=== PATIENT | female | born 1960 | race African-American/Black ===

== ENCOUNTER 2018-03-18 17:39 | Emergency (ER) | payer OTHER ==
[2018-03-18 18:10] VITALS: BMI 43.4
[2018-03-18] MEDS ORDERED: MECLIZINE HCL 25 MG TABLET (FP) PO ONE (19:51)
[2018-03-18] MEDS ORDERED: ONDANSETRON 4 MG/2 ML VIAL IVPUSH ONE (19:51)
[2018-03-18] MEDS ORDERED: SODIUM CHLORIDE 0.9% 1000 ML INFUS.BAG IV ONE (19:51)
[2018-03-18] MEDS ORDERED: ONDANSETRON 4 MG/2 ML VIAL ONE (20:14)
[2018-03-18] MEDS ORDERED: MECLIZINE HCL 25 MG TABLET (FP) ONE (20:14)
--- NOTE | 2018-03-18 20:18 | PDOC ---
History of Present Illness - General Chief Complaint: Lightheaded Stated Complaint: DIZZINESS Time Seen by Provider: 03/18/18 19:37 History Source: Patient Exam Limitations: No Limitations - History of Present Illness Initial Comments: 03/18/18 19:53 The patient is a 58F with a PMH of HTN and hypothyroidism who presents to the ER with complaints of dizziness. The patient states that this morning, she woke up around 0630 and felt a sensation of the room spinning. With this sensation, she felt nauseous and vomited multiple times, NBNB. She laid down for 1 hour and then felt better. She saw her PCP who diagnosed her with a sinus infection and gave her medications. When she went home, she laid down again and felt the dizziness sensation with nausea and vomiting. She denies any numbness, tingling , weakness, CP, SOB, fever, chills. Past History - Past Medical History Allergies/Adverse Reactions: Allergies Allergy/AdvReac Type Severity Reaction Status Date / Time codeine AdvReac Intermediate stomach Verified 03/18/18 19:41 upset styrofoam Allergy tongue Uncoded 03/18/18 19:41 itchy Home Medications: Ambulatory Orders Levothyroxine [Synthroid -] 137 mcg PO DAILY 06/28/17 Lisinopril 20 mg PO ASDIR 06/28/17 Amoxicillin - [Amoxicillin 875mg Tablet -] 875 mg PO BID 03/18/18 Benzonatate 200 mg PO PRN PRN 03/18/18 Ergocalciferol (Vitamin D2) [Vitamin D2] 50,000 unit PO WEEKLY 03/18/18 Fluticasone Furoate [Arnuity Ellipta] 100 mcg IH BID 03/18/18 Hydrochlorothiazide [Hctz -] 50 mg PO DAILY 03/18/18 Meclizine HCl 25 mg PO ONCE #14 tablet 03/18/18 Naproxen [Naprosyn -] 250 mg PO PRN PRN 03/18/18 Vit 108/Iron/Folic AC [ One Tablet] 1 each PO DAILY 03/18/18 Anemia: Yes Asthma: No Cancer: No Cardiac Disorders: No CVA: No COPD: No CHF: No Dementia: No Diabetes: No GI Disorders: No Disorders: No HTN: Yes Hypercholesterolemia: No Liver Disease: No Seizures: No Thyroid Disease: Yes - Surgical History Abdominal Surgery: Yes Appendectomy: Yes Cardiac Surgery: No Cholecystectomy: No Lung Surgery: No Neurologic Surgery: No Orthopedic Surgery: No - Immunization History Immunization Up to Date: Yes - Suicide/Smoking/Psychosocial Hx Smoking Status: No Smoking History: Unknown if ever smoked Years of Tobacco Use: 0 Have you smoked in the past 12 months: No Number of Cigarettes Smoked Daily: 0 Cigars Per Day: 0 Information on smoking cessation initiated: No Hx Alcohol Use: No Drug/Substance Use Hx: No Substance Use Type: Alcohol Hx Substance Use Treatment: No Review of Systems - Review of Systems Able to Perform ROS?: Yes Comments:: 03/18/18 20:35 GENERAL/CONSTITUTIONAL: No fever or chills. No weakness. HEAD, EYES, EARS, NOSE AND THROAT: No change in vision. No ear pain or discharge. No sore throat. CARDIOVASCULAR: No chest pain, palpitations, or lightheadedness. RESPIRATORY: No cough, wheezing, shortness of breath, or hemoptysis. GASTROINTESTINAL: Positive for nausea and vomiting. No diarrhea, constipation, or abdominal pain. GENITOURINARY: No dysuria, frequency, hematuria, or change in urination. MUSCULOSKELETAL: No joint or muscle swelling or pain. No neck or back pain. SKIN: No rash or lesions. NEUROLOGIC: Positive for room spinning sensation. No headache, numbness, tingling, focal weakness, loss of consciousness, or change in strength/ sensation. ENDOCRINE: No increased thirst. No abnormal weight change. HEMATOLOGIC/LYMPHATIC: No anemia, easy bleeding, or history of blood clots. ALLERGIC/IMMUNOLOGIC: No hives or skin allergy. Is the patient limited [place] proficient: No *Physical Exam - Vital Signs Last Vital Signs Temp Pulse Resp BP Pulse Ox 88 20 143/74 99 03/18/18 18:04 03/18/18 18:04 03/18/18 18:04 03/18/18 18:04 - Physical Exam Comments: 03/18/18 20:36 GENERAL: Well developed, well nourished. Awake and alert. No acute distress. HEENT: Normocephalic, atraumatic. Hearing grossly normal. Moist mucous membranes. PERRLA, EOMI. No conjunctival pallor. Sclera are non-icteric. O NECK: Supple. Full ROM. No JVD. CARDIOVASCULAR: Regular rate and rhythm. No murmurs, rubs, or gallops. PULMONARY: No evidence of respiratory distress. Lungs clear to auscultation bilaterally. No wheezing, rales or rhonchi. ABDOMINAL: Soft. Non-tender. Non-distended. No rebound or guarding. GENITOURINARY: No CVA tenderness bilaterally. MUSCULOSKELETAL: Normal range of motion at all joints. No bony deformities or tenderness. EXTREMITIES: No cyanosis. No clubbing. No edema. No calf tenderness or swelling. SKIN: Warm and dry. Normal capillary refill. No rashes. No jaundice. NEUROLOGICAL: Alert, awake, appropriate. Cranial nerves 2-12 intact. No deficits to light touch and temperature in face, upper extremities and lower extremities. 5/5 strength in deltoids, biceps, triceps, quadriceps, hamstrings, and gastrocnemius. Finger to nose normal bilaterally. Normal speech. Gait is normal without ataxia. PSYCHIATRIC: Cooperative. Good eye contact. Appropriate mood and affect. Moderate Sedation - Procedure Monitoring Vital Signs: Procedure Monitoring Vital Signs Temperature Pulse Rate 88 03/18/18 18:04 Respiratory Rate 20 03/18/18 18:04 Blood Pressure 143/74 03/18/18 18:04 O2 Sat by Pulse Oximetry (%) 99 03/18/18 18:04 Heart Score/ECG Review #1 General ECG Interpretation: Sinus Rhythm, Normal Rate, Normal Intervals, No acute ischemic changes Compared to previous ECG there are: Changes noted 03/18/18 22:29 NSR vent rate 60 NM 164 QRS 84 QTc 476 No STD or ZHANE Flattened T waves in lateral leads c/w 06/2017. ED Treatment Course - LABORATORY CBC & Chemistry Diagram: 03/18/18 20:00 03/18/18 20:00 Medical Decision Making - Medical Decision Making 03/18/18 20:36 The patient is a 58F with a PMH of HTN and hypothyroidism who presents to the ER with intermittent room spinning sensation. Likely peripheral vertigo as the symptoms are intermittent and not constant. However, due to age of onset and h/ o HTN, will CT head to r/o intracranial process. Pending labs and imaging. Giving zofran and meclizine for symptomatic treatment. 03/18/18 22:14 CBC and CMP WNL. Head CT negative. Pt states she feels much better. Will d/c with PCP f/u and meclizine. *DC/Admit/Observation/Transfer Diagnosis at time of Disposition: Vertigo - Discharge Dispostion Disposition: HOME Condition at time of disposition: Stable Decision to Admit order: No - Prescriptions Prescriptions: Meclizine HCl 25 mg PO ONCE #14 tablet - Referrals Referrals: Cricket Roberts MD [Staff Physician] - Sher Escalante MD [Staff Physician] - - Patient Instructions Printed Discharge Instructions: DI for Vertigo Additional Instructions: Please follow up with your primary care physician in 2-3 days. Please also follow up with the ENT (Dr. Roberts) and neurologist (Dr. Escalante) for further workup. Please return to the ER if you have any signs or symptoms of chest pain, shortness of breath, uncontrollable fever, chills, nausea, vomiting, numbness, tingling, or weakness in any part of your body, changes in vision, or slurred speech. Please take your medications as prescribed. Please return to the ER if symptoms persist, worsen, or new symptoms arise. - Post Discharge Activity
[2018-03-18 20:36] LABS: BASO % 0.4 % (0-2.0); EOS % 0.1 % (0-4.5); HEMATOCRIT 35.1 % (32.4-45.2); HEMOGLOBIN 11.8 GM/dL (10.7-15.3); LYMPH % 11.6 % (8-40); MCH 27.8 pg (25.7-33.7); MCHC 33.6 g/dl (32.0-36.0); MEAN CELL VOLUME 82.7 fl (80-96); MEAN PLT VOLUME 8.6 fl (7.5-11.1); NEUT % 83.9 % (42.8-82.8); PLATELET COUNT 409 K/MM3 (134-434); RBC 4.25 M/mm3 (3.60-5.2); WHITE BLOOD COUNT 12.9 K/mm3 (4.0-10.0)
--- NOTE | 2018-03-18 20:58 | PDOC ---
Attending Attestation - Resident Resident Name: Phillip Washingtonony - ED Attending Attestation I have performed the following: I have examined & evaluated the patient, The case was reviewed & discussed with the resident, I agree w/resident's findings & plan - HPI HPI: 03/18/18 20:53 58-year-old female with history of hypertension well controlled presents with 2 episodes of vertigo today. Patient was in her usual state of good health, at baseline ambulates with cane secondary to arthritis, suddenly awoke this morning when she jumped out of bed because of the doorbell ringing, experienced world spinning vertigo intermittently for about 1 hour, associated with nausea/ vomiting. Her symptoms got better, she was seen at [facility] and diagnosed with sinusitis and started on antibiotics, went home and upon lying down in bed around 4:30 PM developed a second episode of vertigo with nausea/ vomiting. Since that time, has had intermittent recurrence any time she lies back, does not recur with head turning. No associated headache or vision change , no speech change/focal weakness/numbness. Only history of similar symptoms was when she used the right roller Erydel as a child, no cardiopulmonary complaints. Currently, seated in stretcher, she has no symptoms at all. - Physicial Exam PE: 03/18/18 20:55 Vital signs are normal, blood pressure 140 systolic Resting gaze asymmetry, pupils otherwise equal round reactive to light with extraocular movements intact. Visual broderick intact. No audible carotid bruit, no reproducible sinus tenderness Heart is regular without murmur, lungs are clear, abdomen benign NEURO: Mental status: The patient is alert and oriented x3. Cranial nerves: Cranial nerves II through XII are intact Motor: The upper extremities are 5 over 5 in all muscle groups. The lower extremities are 5 over 5 in all muscle groups. No pronator drift. Sensation: Sensation is intact to light touch throughout. Cerebellar: Unaxrw-okmncl-huae is normal in both upper extremities. Heel-knee- limon is normal in both lower extremities. Reflexes: 2+ and symmetric in the upper and lower extremities. Gait: Normal. Heel and toe walking are normal with baseline antalgic gait 2/2 arthritis. Tandem gait is normal. - Medical Decision Making 03/18/18 20:58 58-year-old female with hypertension presents with 2 episodes of positional vertigo today, very reproducible especially with lying flat, no other red flags on history or physical exam. Presentation seems more consistent with peripheral etiology despite risk factors of age and hypertension, neurological exam is nonfocal. Question diagnosis of sinusitis. Labs sent Check CT head Trial of meclizine Reassess, if above is within normal limits and remains symptomatically improved , can follow-up as outpatient
[2018-03-18 21:14] LABS: ALBUMIN 3.6 g/dl (3.4-5.0); ALK PHOS 98 U/L (45-117); ANION GAP 9 MMOL/L (8-16); BILIRUBIN,TOTAL 0.4 mg/dL (0.2-1); BLOOD UREA NITROGEN 16 mg/dL (7-18); CALCIUM 9.1 mg/dL (8.5-10.1); CHLORIDE 97 mmol/L (98-107); CO2 32 mmol/L (21-32); CREATININE 0.6 mg/dL (0.55-1.3); GLUCOSE,RANDOM 111 mg/dL (74-106); POTASSIUM 3.5 mmol/L (3.5-5.1); SGOT/AST 18 U/L (15-37); SGPT/ALT 22 U/L (13-61); SODIUM 138 mmol/L (136-145); TOT PROT 8.7 g/dl (6.4-8.2)
[2018-03-18 22:38] VITALS: BP 138/78; PULSE 64
--- NOTE | 2018-03-19 11:44 | EKG ---
Test Reason : Blood Pressure : / mmHG Vent. Rate : 060 BPM Atrial Rate : 060 BPM P-R Int : 164 ms QRS Dur : 084 ms QT Int : 476 ms P-R-T Axes : 054 005 -03 degrees QTc Int : 476 ms NORMAL SINUS RHYTHM MODERATE VOLTAGE CRITERIA FOR LVH, MAY BE NORMAL VARIANT NONSPECIFIC T WAVE ABNORMALITY ABNORMAL ECG WHEN COMPARED WITH ECG OF 28-JUN-2017 19:16, INVERTED T WAVES HAVE REPLACED NONSPECIFIC T WAVE ABNORMALITY IN INFERIOR LEADS Confirmed by KELSIE JADE, JERAD ([id number]) on 03/19/2018 11:43:56 AM Referred By: Confirmed By:JERAD IGLESIAS MD
== END 2018-03-18 22:37 | disposition home or self-care (01) ==
LOC: JER 17:39
PROC: 3E033GC Introduction of Other Therapeutic Substance into Peripheral Vein, Percutaneous Approach (ICD-10-PCS; principal; 2018-03-18)
DX: H81.399 Other peripheral vertigo, unspecified ear (principal); I10 Essential (primary) hypertension; E03.9 Hypothyroidism, unspecified; D64.9 Anemia, unspecified
CPT/HCPCS: 36415; 70450-TC; 80053; 85025; 93005; 93010; 99284-25; J7030

== ENCOUNTER 2021-10-06 09:52 | Emergency (ER) | payer OTHER ==
[2021-10-06 10:01] VITALS: BP 140/81; PULSE 72; TEMP 98.4; BMI 47.8
[2021-10-06] MEDS ORDERED: guaiFENesin/CODEINE 10 ML UNIT-DOSE CUPS PO ONE (10:37)
[2021-10-06] MEDS ORDERED: ALBUTEROL SO4 2.5/IPRATROPIUM 0.5 INH SOL 3 ML VIAL.NEB. NEB ONE ×2 (10:41→11:05)
[2021-10-06] MEDS ORDERED: ACETAMINOPHEN 325 MG TABLET (FP) PO ONE (10:44)
[2021-10-06] MEDS ORDERED: ACETAMINOPHEN 325 MG TABLET (FP) ONE (11:03)
[2021-10-06] MEDS ORDERED: guaiFENesin/CODEINE 5 ML UNIT-DOSE CUPS PO ONE (11:05)
== END 2021-10-06 12:19 ==
LOC: JER 09:52
PROC: 3E0F7GC Introduction of Other Therapeutic Substance into Respiratory Tract, Via Natural or Artificial Opening (ICD-10-PCS; principal; 2021-10-06)
DX: U07.1 COVID-19 (principal)
CPT/HCPCS: 0241U-QW; 71046-TC-FY; 99283-25

== ENCOUNTER 2021-10-12 06:25 | Observation (INO) | payer OTHER ==
[2021-10-12 06:54] VITALS: BMI 47.5
[2021-10-12] MEDS ORDERED: LIDOCAINE 5% TOPICAL PATCH TP ONE (07:55)
[2021-10-12] MEDS ORDERED: ACETAMINOPHEN INJECTION 100 ML IVPB ONE (08:24)
[2021-10-12] MEDS ORDERED: ACETAMINOPHEN 1000 MG/100 ML BAG IVPB ONE (08:51)
[2021-10-12] MEDS ORDERED: LIDOCAINE 5% TOPICAL PATCH ONE (08:51)
[2021-10-12 09:00] LABS: BASO % 0.6 % (0-2.0); EOS % 2.6 % (0-4.5); HEMATOCRIT 37.4 % (32.4-45.2); HEMOGLOBIN 12.3 GM/dL (10.7-15.3); LYMPH % 46.9 % (8-40); MCH 27.4 pg (25.7-33.7); MEAN CELL VOLUME 83.2 fl (80-96); MEAN PLT VOLUME 8.5 fl (7.5-11.1); MONO % 6.6 % (3.8-10.2); NEUT % 43.3 % (42.8-82.8); PLATELET COUNT 370 10^3/uL (134-434); RDW 14.4 % (11.6-15.6); WHITE BLOOD COUNT 7.7 K/mm3 (4.0-10.0)
[2021-10-12 09:04] LABS: INR 1.15 (0.83-1.09); PROTHROMBIN TIME (PATIENT) 13.2 SEC (9.7-13.0)
[2021-10-12 09:06] LABS: ACTIVATED PTT 34.2 SECONDS (25.2-36.5)
[2021-10-12 09:19] LABS: CALCIUM 8.5 mg/dL (8.5-10.1)
[2021-10-12 09:20] LABS: ALBUMIN 3.4 g/dl (3.4-5.0); BLOOD UREA NITROGEN 11.8 mg/dL (7-18)
[2021-10-12 09:23] LABS: CREATININE 0.6 mg/dL (0.55-1.3)
[2021-10-12 09:25] LABS: BILIRUBIN,TOTAL 0.4 mg/dL (0.2-1); TOT PROT 7.9 g/dl (6.4-8.2)
[2021-10-12] MEDS ORDERED: ALBUTEROL SO4 HFA INHALER IH PRN ×2 (12:35→12:52)
[2021-10-12] MEDS ORDERED: guaiFENesin 600 MG TABLET.ER (FP) PO PRN (12:35)
[2021-10-12] MEDS ORDERED: guaiFENesin 200 MG/10 ML 10 ML UNIT-DOSE CUPS PO PRN (12:35)
[2021-10-12] MEDS ORDERED: ACETAMINOPHEN 325 MG TABLET (FP) PO PRN (12:39)
[2021-10-12] MEDS: ASPIRIN 81 MG CHEWABLE TABLETS PO SCH (17:07)
[2021-10-12] MEDS ORDERED: NAPROXEN 500 MG TABLET PO PRN (17:51)
[2021-10-12] MEDS: HEPARIN NA (PORCINE) 5,000 UNITS/ML 1ML VIAL SQ SCH (21:25)
[2021-10-12] MEDS ORDERED: PATIENT'S OWN MEDICATION (NON-FORMULARY) (Fluticasone Furoate [Arnuity Ellipta] 100 MCG Bl IH SCH (22:00)
[2021-10-12] MEDS ORDERED: LIDOCAINE PATCH REMOVAL MC SCH (22:00)
[2021-10-13] MEDS ORDERED: LEVOTHYROXINE NA 125 MCG TABLET (FP) ONE (06:24)
[2021-10-13] MEDS ORDERED: LEVOTHYROXINE NA 25 MCG TABLET (FP) ONE (06:24)
[2021-10-13] MEDS ORDERED: LEVOTHYROXINE 125 MCG, LEVOTHYROXINE 12.5 MCG PO SCH (07:00)
[2021-10-13 09:06] LABS: BASO % 0.4 % (0-2.0); EOS % 3.4 % (0-4.5); HEMATOCRIT 35.8 % (32.4-45.2); HEMOGLOBIN 11.5 GM/dL (10.7-15.3); LYMPH % 48.7 % (8-40); MCH 26.5 pg (25.7-33.7); MCHC 32.2 g/dl (32.0-36.0); MEAN CELL VOLUME 82.3 fl (80-96); MONO % 8.1 % (3.8-10.2); NEUT % 39.4 % (42.8-82.8); PLATELET COUNT 343 10^3/uL (134-434); RBC 4.35 M/mm3 (3.60-5.2); RDW 14.4 % (11.6-15.6); WHITE BLOOD COUNT 5.6 K/mm3 (4.0-10.0)
[2021-10-13 09:26] LABS: ALBUMIN 3.4 g/dl (3.4-5.0); BLOOD UREA NITROGEN 11.8 mg/dL (7-18)
[2021-10-13 09:29] LABS: CREATININE 0.6 mg/dL (0.55-1.3)
[2021-10-13 09:31] LABS: BILIRUBIN,TOTAL 0.5 mg/dL (0.2-1); TOT PROT 7.8 g/dl (6.4-8.2)
[2021-10-13] MEDS: ASPIRIN 81 MG CHEWABLE TABLETS PO SCH (09:33)
[2021-10-13] MEDS: HEPARIN NA (PORCINE) 5,000 UNITS/ML 1ML VIAL SQ SCH (09:33)
[2021-10-13] MEDS ORDERED: HYDROCHLOROTHIAZIDE 50 MG TABLET PO SCH (10:00)
[2021-10-13] MEDS ORDERED: LISINOPRIL 20 MG TABLET PO SCH (10:00)
[2021-10-13] MEDS ORDERED: LEVOTHYROXINE NA 50 MCG TABLET (FP) PO SCH (10:00)
[2021-10-13] MEDS ORDERED: POTASSIUM CHLORIDE TABS 20 MEQ TABLET.ER (FP) PO ONE (17:16)
[2021-10-13] MEDS ORDERED: amLODIPine BESYLATE 5 MG TABLET (FP) PO SCH (17:30)
[2021-10-13 18:32] VITALS: BP 154/87; PULSE 66; TEMP 97.7
[2021-10-14] MEDS ORDERED: HYDROCHLOROTHIAZIDE 25 MG TABLET (FP) PO SCH (10:00)
== END 2021-10-13 18:45 | disposition home or self-care (01) ==
LOC: JER 06:25 → JERBED 11:20 → J4S 14:27
PROVIDERS: ADMIT Internal Medicine; ATTEND Internal Medicine
PROC: 3E033NZ Introduction of Analgesics, Hypnotics, Sedatives into Peripheral Vein, Percutaneous Approach (ICD-10-PCS; principal; 2021-10-12)
PROC: 3E023GC Introduction of Other Therapeutic Substance into Muscle, Percutaneous Approach (ICD-10-PCS; 2021-10-12)
PROC: 3E033GC Introduction of Other Therapeutic Substance into Peripheral Vein, Percutaneous Approach (ICD-10-PCS; 2021-10-12)
DX: M25.512 Pain in left shoulder (principal); U07.1 COVID-19; R07.9 Chest pain, unspecified; M54.9 Dorsalgia, unspecified; Z91.09 Other allergy status, other than to drugs and biological substances; E03.9 Hypothyroidism, unspecified; I10 Essential (primary) hypertension; Z90.89 Acquired absence of other organs; D25.9 Leiomyoma of uterus, unspecified; M19.90 Unspecified osteoarthritis, unspecified site; D64.9 Anemia, unspecified; E04.9 Nontoxic goiter, unspecified; E66.01 Morbid (severe) obesity due to excess calories; Z68.42 Body mass index [BMI] 45.0-49.9, adult; Z88.6 Allergy status to analgesic agent
CPT/HCPCS: 36415; 71275-TC; 80053; 84443; 84484; 85025; 85379; 85610; 85730; 93005; 93010; 96365; 96372; 96375; 99285-25; C9803-CS; G0378; J1644; Q9967; U0003; U0005

== ENCOUNTER 2023-03-24 08:36 | Emergency (ER) | payer OTHER ==
[2023-03-24 08:43] VITALS: BP 142/75; PULSE 68; RESP 17; TEMP 97.7; BMI 46.4
[2023-03-24] MEDS ORDERED: ONDANSETRON 4 MG/2 ML VIAL IVPUSH ONE (09:52)
[2023-03-24] MEDS ORDERED: ACETAMINOPHEN 1000 MG/100 ML BAG IVPB ONE (09:52)
[2023-03-24] MEDS ORDERED: SODIUM CHLORIDE 0.9% 500 ML INFUS.BAG IV ONE (09:52)
[2023-03-24] MEDS ORDERED: LIDOCAINE 5% TOPICAL PATCH TP ONE (09:54)
[2023-03-24] MEDS ORDERED: ONDANSETRON 4 MG/2 ML VIAL ONE (09:54)
[2023-03-24] MEDS ORDERED: ACETAMINOPHEN INJECTION 100 ML IVPB ONE (09:54)
[2023-03-24 10:34] LABS: EPI CELLS 30 /uL (0-25.1); HYALINE CASTS 1 /uL (0-3.1); URINE APPEARANCE CLEAR; URINE BACTERIA 2122 /uL (0-1359); URINE BILIRUBIN NEGATIVE (NEGATIVE); URINE COLOR YELLOW; URINE GLUCOSE (UA) NEGATIVE (NEGATIVE); URINE KETONE TRACE (NEGATIVE); URINE LEUK ESTERASE NEGATIVE (NEGATIVE); URINE NITRITE NEGATIVE (NEGATIVE); URINE PROTEIN TRACE (NEGATIVE); URINE RBC 136 /uL (0-23.9); URINE WBC 16 /uL (0-25.8)
[2023-03-24 10:38] LABS: INR 1.23 (0.83-1.09); PROTHROMBIN TIME (PATIENT) 14.2 SEC (9.7-13.0)
[2023-03-24 10:40] LABS: ACTIVATED PTT 35.1 SECONDS (25.2-36.5)
[2023-03-24 10:43] LABS: BASO % 0.7 % (0-2.0); EOS % 2.4 % (0-4.5); HEMOGLOBIN 11.8 GM/dL (10.7-15.3); LYMPH % 46.3 % (8-40); MCH 27.5 pg (25.7-33.7); MCHC 32.7 g/dl (32.0-36.0); MEAN CELL VOLUME 84.2 fl (80-96); MEAN PLT VOLUME 8.2 fl (7.5-11.1); MONO % 6.7 % (3.8-10.2); NEUT % 43.9 % (42.8-82.8); PLATELET COUNT 451 10^3/uL (134-434); RBC 4.28 M/mm3 (3.60-5.2); RDW 13.9 % (11.6-15.6); WHITE BLOOD COUNT 9.6 K/mm3 (4.0-10.0)
[2023-03-24] MEDS ORDERED: LIDOCAINE 4% PATCH TP ONE (10:51)
[2023-03-24 10:59] LABS: POTASSIUM 3.9 mmol/L (3.5-5.1)
[2023-03-24 11:01] LABS: ALBUMIN 3.2 g/dl (3.4-5.0); BLOOD UREA NITROGEN 10.6 mg/dL (7-18); CALCIUM 8.7 mg/dL (8.5-10.1); MAGNESIUM 1.9 mg/dL (1.8-2.4)
[2023-03-24 11:04] LABS: CREATININE 0.7 mg/dL (0.55-1.3)
[2023-03-24 11:06] LABS: BILIRUBIN,TOTAL 0.5 mg/dL (0.2-1); TOT PROT 8.4 g/dl (6.4-8.2)
[2023-03-24] MEDS ORDERED: LIDOCAINE PATCH REMOVAL MC SCH (22:00)
== END 2023-03-24 12:49 | disposition home or self-care (01) ==
LOC: JER 08:36
PROC: 3E033NZ Introduction of Analgesics, Hypnotics, Sedatives into Peripheral Vein, Percutaneous Approach (ICD-10-PCS; principal; 2023-03-24)
PROC: 3E033GC Introduction of Other Therapeutic Substance into Peripheral Vein, Percutaneous Approach (ICD-10-PCS; 2023-03-24)
DX: R10.13 Epigastric pain (principal); M54.9 Dorsalgia, unspecified; R11.0 Nausea; K59.00 Constipation, unspecified
CPT/HCPCS: 36415; 74018-TC-FY; 74177-TC; 80053; 81003; 83605; 83690; 83735; 85025; 85610; 85730; 87086; 99285-25; Q9967

== ENCOUNTER 2024-02-26 18:46 | Emergency (ER) | payer OTHER ==
[2024-02-26 18:57] VITALS: BP 144/76; PULSE 78; RESP 18; TEMP 98.2; BMI 41.8
[2024-02-26] MEDS ORDERED: ACETAMINOPHEN 325 MG TABLET (FP) ONE (20:02)
[2024-02-26] MEDS ORDERED: METOCLOPRAMIDE HCL 10 MG TABLET (FP) PO ONE (20:02)
[2024-02-26] MEDS: ACETAMINOPHEN 325 MG TABLET (FP) PO ONE (20:05)
[2024-02-26] MEDS: METOCLOPRAMIDE HCL 10 MG TABLET (FP) PO ONE (20:06)
== END 2024-02-26 21:34 | disposition home or self-care (01) ==
LOC: JER 18:46
DX: R51.9 Headache, unspecified (principal)
CPT/HCPCS: 99283-25

== ENCOUNTER → 2025-01-12 | Day surgery (SDC) | payer OTHER | END | disposition home or self-care (01) | LOC: FMAMMOTONE 09:40 → EDSTATUS 10:00 | PROVIDERS: ATTEND Family Medicine | PROC: 0H9T3ZX Drainage of Right Breast, Percutaneous Approach, Diagnostic (ICD-10-PCS; principal; 2025-01-12) | DX: N60.11 Diffuse cystic mastopathy of right breast (principal) | CPT/HCPCS: 19081; 76098-TC-FY; 87899; 88305-TC; A4648 ==